=== PATIENT | female | born 1990 | race Hispanic/Latino ===

== ENCOUNTER 2018-03-12 16:08 | Emergency (ER) | payer BC, OTHER ==
[~2018-03-12] VITALS: Ht 154.9 cm; Wt 59.0 kg
[~2018-03-12 16:08] MED LIST: IBUPROFEN400 MG OR; NO HOME MEDS
[2018-03-12 17:47] LABS: INFLUENZA A NONE DETECTED (NONE DETECT); INFLUENZA B NONE DETECTED (NONE DETECT)
[2018-03-12] MEDS ORDERED: AMOXICILLIN875 MG PO (17:54)
[2018-03-12] MEDS ORDERED: TAM75CAP PO (17:54)
[2018-03-12 18:08] VITALS: BP 115/69
== END 2018-03-12 18:08 | disposition home or self-care (01) | DRG 153 ==
LOC: ED 16:08
DX: J11.1 Influenza due to unidentified influenza virus with other respiratory manifestations (principal); J02.0 Streptococcal pharyngitis